=== PATIENT | female | born 1980 | race Caucasian/White ===

== ENCOUNTER 2022-06-21 07:46 | Emergency (ER) | payer BC, SELFPAY ==
--- NOTE | ~2022-06-21 | CT_ITS ---
EXAMINATION: CT HEAD WITHOUT CONTRAST CLINICAL INFORMATION: Dizziness, headache and blurred vision. COMPARISON: None TECHNIQUE: Contiguous axial imaging was performed from the skull base to vertex without intravenous administration of contrast. This CT examination was performed using dose optimization techniques as appropriate, variously including the following: *Automated exposure control *Adjustment of mA and/or kV according to patient size (this includes techniques or standardized protocols for targeted exams where dose is matched to indication/reason for exam; i.e. extremities or head) *Use of iterative reconstruction technique DLP: 646 mGy-cm FINDINGS: Brain: There is no acute intra-axial, extra-axial bleed, masses or midline shift. There is no acute infarction in evolution. There is no edema. The lateral ventricles are symmetrical in size and configuration without enlargement. The crawford to white matter differentiation is maintained normal. Bone windows reveal no calvarial abnormality. No scalp soft tissue abnormality seen. The paranasal sinuses are well-aerated. CT/CT head/brain wo IV con IMPRESSION: No acute intracranial process seen.
[2022-06-21 07:49] VITALS: BP 153/101; PULSE 99; RESP 18; TEMP 35.9; O2SAT 97; BMI 40.1
--- NOTE | 2022-06-21 07:53 | ECG_ITS ---
Test Reason : headache / blurry vision Blood Pressure : / mmHG Vent. Rate : 085 BPM Atrial Rate : 085 BPM P-R Int : 150 ms QRS Dur : 076 ms QT Int : 366 ms P-R-T Axes : 033 -01 003 degrees QTc Int : 435 ms Normal sinus rhythm Nonspecific ST and T wave abnormality Borderline ECG No previous ECGs available Referred By: Generic ED Physician Electronically Signed By:ANDREAS ELLIS
--- NOTE | 2022-06-21 08:17 | ED_ITS ---
HPI - Headache General Chief Complaint: Headache Stated Complaint: headache Time Seen by Provider: 06/21/22 07:58 Source: patient Mode of arrival: ambulatory Limitations: no limitations History of Present Illness HPI Narrative: 42 yo female with history of HTN, GERD, and question of a recently diagnosed pituitary tumor presents to the ER for evaluation of a severe headache, dizziness and blurred vision that started last night. She reports a history of similar symptoms that have come and gone intermittently for the last few months but not this bad. She states last night when she was laying down she developed s evere generalized headache along with dizziness, nausea and intermittently blurred and spotty vision. She states it has been constant since last night. She also reports associated chest pain and SOB. She has not vomited and denies abdominal pain. She thinks she might have passed out due to the pain last night. She states she is currently seeing and [employer] Dealer with [facility] for evaluation of a possible pituitary tumor. She had an MRI and bloodwork done in Apr/May. She states she is due to get a dedicated pituitary MRI for further evaluation. MD elicited complaint: headache Pertinent past history: hypertension Onset (ago): hour(s) (12) Onset description: suddenly Location: generalized Severity: severe Pain scale (0-10): 10 Quality & Timing: aching and constant Exacerbating factors: none Relieving factors: nothing Context: occurred at rest Associated symptoms: nausea, syncope, near syncope and lightheadedness Treatments prior to arrival: none Related Data Allergies Allergy/AdvReac Type Severity Reaction Status Date / Time No Known Allergies Allergy Verified 06/21/22 07:49 Review of Systems Review of Systems: Yes all other systems are reviewed and are negative [facility] Social History Social History Advance Directives: No Advance Directives Information Provided: No Physical Exam Vital Signs: Vital Signs: Last Vital Signs Temp 98.4 F 06/21/22 12:50 Pulse 85 06/21/22 12:50 Resp 16 06/21/22 12:50 BP 119/70 06/21/22 12:50 Pulse Ox 99 06/21/22 12:50 O2 Del Method 06/21/22 12:50 BMI result Body Mass Index 40.1 Appearance: Alert. Oriented X3. Tearful Eyes: Pupils equal, round and reactive to light. EOMI, no nystagmus ENT: Pharynx normal. Neck: Normal inspection. Neck supple. CVS: Normal heart rate and rhythm. Pulses normal. Respiratory: No respiratory distress. Breath sounds normal. Abdomen: Soft and nontender. +BS x4 Skin: Skin warm and dry. Normal skin color. Normal skin turgor. No rashes. Extremities: No lower extremity edema. Neuro: Oriented X 3. No motor deficit. No sensory deficit. CN II-XII intact. Normal speech and cognition. Normal heel to lanza and finger to nose bilaterally. NIH Stroke Scale Internal: Initial- Upon Arrival Level of Consciousness: Alert Level of Consciousness Questions: Answers both questions correctly Level of Consciousness Commands: Performs both tasks correctly Best Gaze: Normal Visual: No visual loss Facial Palsy: Normal Motor Arm (Right): No drift Motor Arm (Left): No drift Motor Leg (Right): No drift Motor Leg (Left): No drift Limb Ataxia: Absent Sensory: Normal Best Language: No aphasia Dysarthia: Normal Extinction and Inattention: No abnormality Score: 0 Course Course Course Narrative: 42 yo female with history of HTN and GERD, hx pituitary tumor presenting with severe headache, dizziness and blurred vision since last night. No visual field loss on examination Will try to get [facility] records. Will get labs and CT. Will need MRI to r/o tumor compressing optic nerve although she does not have any notable visual field deficits. Will treat with migraine cocktail and reassess. Case d/w Dr. Schilling. Reevaluation(s) Reevaluation #1: Headache improved after medications with ongoing complaints of dizziness when she closes her eyes. No sense of room spinning however. No vomiting. Continues to be neuro deficit free but has not been able to tolerate Will give trial of mecilzine and ativan. Time: 10:20 Reevaluation #2: Dizziness persists, headache is back. IV morphine ordered. Time: 11:45 Reevaluation #3: Patient sleeping comfortably. Time: 14:09 Additional Reevaluation(s): 15:23- She does not feel like she can go home. Hospitalist TT for admission for intractable dizziness, however we have no MRI available until Thursday. Symptoms may be related to her pituitary tumor vs possible posterior stroke. will transfer to [facility] for continuity of care. Accepted under Dr. Muir. Patient agrees with plan for transfer Medications Administered Discontinued Medications Generic Name Dose Route Start Last Admin Trade Name Freq PRN Reason Stop Dose Admin Diphenhydramine HCl 50 mg 06/21/22 08:21 06/21/22 08:39 Diphenhydramine Hcl 50 Mg/Ml Vial IVPUSH 06/21/22 08:22 50 mg ONCE ONE Administration Sodium Chloride 1,000 mls @ 999 mls/hr 06/21/22 08:00 06/21/22 10:09 Ns IVCONT 06/21/22 09:00 Infused .Q1H1M BALDEV Infusion Ketorolac Tromethamine 30 mg 06/21/22 08:21 06/21/22 08:39 Ketorolac Tromethamine 30 Mg/Ml Vial IVPUSH 06/21/22 08:22 30 mg ONCE ONE Administration Lorazepam 1 mg 06/21/22 10:20 06/21/22 10:35 Lorazepam 1 Mg Tablet PO 06/21/22 10:21 1 mg ONCE ONE Administration Meclizine HCl 50 mg 06/21/22 10:20 06/21/22 10:35 Meclizine Hcl 25 Mg Tablet PO 06/21/22 10:21 50 mg ONCE ONE Administration Metoclopramide HCl 10 mg 06/21/22 08:21 06/21/22 08:40 Metoclopramide Hcl 10 Mg/2 Ml Vial IVPUSH 06/21/22 08:22 Not Given ONCE ONE Morphine Sulfate 4 mg 06/21/22 11:44 06/21/22 12:53 Morphine Sulfate 4 Mg/Ml Cartridge IVPUSH 06/21/22 11:45 4 mg ONCE ONE Administration Protocol Ondansetron HCl 4 mg 06/21/22 08:43 06/21/22 08:46 Ondansetron Hcl 4 Mg/2 Ml Vial IVPUSH 06/21/22 08:44 4 mg ONCE ONE Administration Medical Decision Making Differential Diagnosis Differential Diagnoses: The differential diagnosis associated with the pre sentation includes Migraine headache, atypical migraine, pituitary macroadenoma compressing the optic nerve, posterior stroke, ICH, viral illness, metabolic derangements, brain tumor Admission/Observation Consideration of admission/observation: Escalation of care including admission/observation considered Intractable dizziness, headache, blurred vision, attempted to admit here however no MRI service and Thursday. No neurosurgery services in the need of a surgical intervention for tumor. Transfer to [facility]. Consult Healthcare Provider Management of the patient was discussed with: Hospitalist recommending transfer to higher level of care Lab Data MDM Lab Attestation statement: I reviewed the patient's lab results. Viewed the patient's lab workup, revealing Normal CBC, unremarkable complete metabolic panel, negative troponin 06/21/22 08:31 06/21/22 08:31 Labs: Lab Results 06/21/22 06/21/22 06/21/22 Range/Units 08:31 08:31 08:31 WBC 7.8 (4.8-10.8) X10*3/uL RBC 4.55 (4.20-5.50) X10*6/uL Hgb 13.1 (12.0-16.0) g/dl Hct 38.8 (37.0-47.0) % MCV 85.3 (80.0-98.0) fL MCH 28.8 (27.0-33.0) pg MCHC 33.8 (31.0-35.0) g/dl RDW 14.0 (11.0-16.0) % Plt Count 303 (160-400) X10*3/uL MPV 10.2 (9.4-12.3) fL Immature Gran % (Auto) 0.3 (0.0-0.4) % Neut % (Auto) 74.7 H (45-73) % Lymph % (Auto) 18.9 L (20-40) % [place] % (Auto) 5.0 (2-11) % Eos % (Auto) 0.5 (0-4) % Baso % (Auto) 0.6 (0-2) % Lymph # (Auto) 1.5 (1.2-4.9) X10*3/uL [place] # (Auto) 0.4 (0.1-1.2) X10*3/uL Eos # (Auto) 0.0 (0.0-0.4) X10*3/uL Baso # (Auto) 0.1 (0.0-0.2) X10*3/uL Abs Immat Gran (auto) 0.02 (0.00-0.03) X10*3/uL Absolute Neuts (auto) 5.9 (2.0-8.3) x10*3/uL Absolute Nucleated RBC 0.000 (0.0-0.012) X10*3/uL Nucleated RBC % (auto) 0.0 (0.0-0.2) /100WBC PT 12.4 (10.0-13.1) SEC INR 1.1 (0.9-1.1) APTT 32.7 (26.0-36.4) SEC Sodium 138 (135-145) mmol/L Potassium 3.9 (3.3-5.1) mmol/L Chloride 104 (96-108) mmol/L Carbon Dioxide 20 L (22-29) mmol/L Anion Gap 18 (12-20) BUN 11 (9-16) mg/dL Creatinine 0.74 (0.5-1.4) mg/dL Estim Creat Clear Calc 109.2 Estimated GFR > 60 Random Glucose 144 H (60-115) mg/dL Calcium 9.6 (8.4-10.2) mg/dL Magnesium 2.0 (1.6-2.6) mg/dL Total Bilirubin 0.9 (0.0-1.0) mg/dL Direct Bilirubin 0.3 (0.0-0.5) mg/dL AST 16 (5-31) U/L ALT 18 (0-31) U/L Alkaline Phosphatase 69 (39-117) U/L Troponin I High Sens (<3.5-17.0) ng/L Total Protein 7.1 (6.5-8.0) g/dL Albumin 4.3 (3.5-5.0) g/dL TSH (0.32-4.0) uIU/mL COVID-19 (JUSTO) (Negative) COVID-19 Clin Com 06/21/22 06/21/22 06/21/22 Range/Units 08:31 08:31 08:31 WBC (4.8-10.8) X10*3/uL RBC (4.20-5.50) X10*6/uL Hgb (12.0-16.0) g/dl Hct (37.0-47.0) % MCV (80.0-98.0) fL MCH (27.0-33.0) pg MCHC (31.0-35.0) g/dl RDW (11.0-16.0) % Plt Count (160-400) X10*3/uL MPV (9.4-12.3) fL Immature Gran % (Auto) (0.0-0.4) % Neut % (Auto) (45-73) % Lymph % (Auto) (20-40) % [place] % (Auto) (2-11) % Eos % (Auto) (0-4) % Baso % (Auto) (0-2) % Lymph # (Auto) (1.2-4.9) X10*3/uL [place] # (Auto) (0.1-1.2) X10*3/uL Eos # (Auto) (0.0-0.4) X10*3/uL Baso # (Auto) (0.0-0.2) X10*3/uL Abs Immat Gran (auto) (0.00-0.03) X10*3/uL Absolute Neuts (auto) (2.0-8.3) x10*3/uL Absolute Nucleated RBC (0.0-0.012) X10*3/uL Nucleated RBC % (auto) (0.0-0.2) /100WBC PT (10.0-13.1) SEC INR (0.9-1.1) APTT (26.0-36.4) SEC Sodium (135-145) mmol/L Potassium (3.3-5.1) mmol/L Chloride (96-108) mmol/L Carbon Dioxide (22-29) mmol/L Anion Gap (12-20) BUN (9-16) mg/dL Creatinine (0.5-1.4) mg/dL Estim Creat Clear Calc Estimated GFR Random Glucose (60-115) mg/dL Calcium (8.4-10.2) mg/dL Magnesium (1.6-2.6) mg/dL Total Bilirubin (0.0-1.0) mg/dL Direct Bilirubin (0.0-0.5) mg/dL AST (5-31) U/L ALT (0-31) U/L Alkaline Phosphatase (39-117) U/L Troponin I High Sens < 3.5 (<3.5-17.0) ng/L Total Protein (6.5-8.0) g/dL Albumin (3.5-5.0) g/dL TSH 0.51 (0.32-4.0) uIU/mL COVID-19 (JUSTO) Negative (Negative) COVID-19 Clin Com See Note Independent Interpretation I performed an independent interpretation of an: CT Scan Interpretation: CT scan of the head reviewed, no obvious ICH or stroke Radiology Impression Discussion of test interpretation with radiology: I have reviewed the radiologist's reading. Radiologist Impression: FINDINGS: Brain: There is no acute intra-axial, extra-axial bleed, masses or midline shift. There is no acute infarction in evolution. There is no edema. The lateral ventricles are symmetrical in size and configuration without enlargement. The crawford to white matter differentiation is maintained normal. Bone windows reveal no calvarial abnormality. No scalp soft tissue abnormality seen. The paranasal sinuses are well-aerated. ? CT/CT head/brain wo IV con IMPRESSION: No acute intracranial process seen. Prescription Management I considered prescription management with: Pain Medication Critical Care Time Critical Care Time Critical Care Time: Yes Total Critical Care Time: 48 Attestation: I have personally provided critical care time exclusive of time spent on separately billable procedures. Time includes review of lab data, radiology results, discussion with consultants, and monitoring for potential decompensation. Intervention performed as documented. Discharge Plan Discharge Clinical Impression: Headache, Dizziness Patient Disposition: [facility] Transfer Details: [facility]
[2022-06-21 08:37] LABS: MANUAL DIFF FLAG NO
--- OUTSIDE RECORDS SUMMARY | 2022-06-21 08:37 | XMS_ITS ---
:1980 Author Care Team Providers Name Role Phone Hitesh Hendrix Primary Care Provider Unavailable Allergies Code Code System Name Reaction Severity Status Onset NKDA ? Medications Name Status Start Date Stop Date ? ? albuterol sulfate HFA 90 mcg/actuation aerosol inhaler Active ? Not available INHALE 2 PUFFS BY MOUTH EVERY 4 HOURS amoxicillin 875 mg-potassium clavulanate 125 mg tablet Active ? Not available TAKE 1 TABLET BY MOUTH EVERY 12 HOURS DIRECTED FOR 10 DAYS aspirin 81 mg tablet,delayed release Active ? Not available TAKE 1 TABLET BY MOUTH EVERY DAY azelastine 0.05 % eye drops Active ? Not available azelastine-fluticasone 137 mcg-50 mcg/spray nasal spray Active ? Not available USE 1 SPRAY EACH NOSTRIL TWICE DAILY azithromycin 250 mg tablet Active ? Not a vailable TAKE 2 TABLETS BY MOUTH TODAY, THEN TAKE 1 TABLET DAILY FOR 4 D AYS BD Felicia 2nd Gen Pen Needle 32 gauge x Active ? Not available USE DIRECTED ONCE A WEEK WITH OZEMPIC diclofenac 1 % topical gel Active ? Not a vailable APPLY 2 GRAMS TO THE AFFECTED AREA(S) BY TOPICAL ROUTE 4 TIMES PER DAY epinephrine 0.3 mg/0.3 mL injection, auto-injector Active ? Not available PLEASE SEE ATTACHED FOR DETAILED DIRECTIONS fluconazole 150 mg tablet Active ? Not av ailable FreeStyle Lancets 28 gauge Active ? Not a vailable E11.9 TEST ONCE DAILY FreeStyle Lite Meter kit Active ? Not forest ilable E11.9 TEST ONCE DAILY FreeStyle Lite Strips Active ? Not availa ble E11.9 TEST ONCE DAILY levofloxacin 500 mg tablet Active ? Not a vailable lisinopril Active ? Not available lisinopril 10 mg tablet Active ? Not avai lable TAKE 1 TABLET BY MOUTH EVERY DAY losartan 50 mg tablet Active ? Not availa ble montelukast 10 mg tablet Active ? Not forest ilable TAKE 1 TABLET BY MOUTH EVERY DAY olopatadine 0.6 % nasal spray Active ? No t available SPRAY OR APPLY 2 INHALATIONS INSIDE NOSE 2 (TWO) TIMES A DAY NEEDED. Ozempic Active ? Not available Ozempic 0.25 mg or 0.5 mg (2 mg/1.5 mL) subcutaneous pen injecto r Active ? Not available INJECT 0.5 MG ONCE A WEEK FOR DIABETES Ozempic 1 mg/dose (4 mg/3 mL) subcutaneous pen injector Active ? Not available INJECT 1 MG ONCE A WEEK FOR DIABETES pantoprazole 40 mg tablet,delayed release Active ? Not available TAKE 1 TABLET BY MOUTH EVERY DAY prednisone 10 mg tablet Active ? Not avai lable TAKE 1 TABLET BY MOUTH EVERY DAY FOR 5 DAYS prednisone 20 mg tablet Active ? Not avai lable TAKE 2 TABLETS BY MOUTH FOR 3 DAYS THEN TAKE 1 TABLET FOR 2 DAY S tinidazole 500 mg tablet Active ? Not forest ilable TAKE 4 TABLETS (2 G TOTAL) BY MOUTH DAILY FOR 2 DOSES. Vitamin C 500 mg tablet Active ? Not avai lable TAKE 1 TABLET BY MOUTH EVERY DAY zinc sulfate 50 mg zinc (220 mg) tablet Active ? Not available TAKE 1 TABLET BY MOUTH EVERY DAY Zyrtec Active ? Not available Problems None recorded. Procedures None recorded. Results Lab Results Date Name Specimen Result Interpretation Description Value Range Status Address ? 04/01/2022 SARS CoV 2 RNA ? Result negative ? ? [facility] (COVID-19), [place], [place]: [address], [address] , Respiratory [place] Specimen Past Encounters Encounter Date Diagnosis Provider 04/01/2022 Suspected COVID-19; Acute Sinusitis Marcus parth ANGELO Kenyon: [address], [place] [address], Ph. Social History None recorded. Vaccine List None recorded. Plan of Care Reminders Provider Appointments None recorded. ? ? Lab None recorded. ? ? Referral None recorded. ? ? Procedures None recorded. ? ? Surgeries None recorded. ? ? Imaging None recorded. ? ? Vitals Blood Pressure (1) 154/112 mm[Hg] (2) 139/93 mm[Hg]
--- OUTSIDE RECORDS SUMMARY | 2022-06-21 08:37 | XMS_ITS | Encounter Summary ---
:1980 Author Reason for Visit COVID-19 symptoms sinus headache, rt eye pain/redness/disc harge, sore throat in the am, post nasal drip2 shots moderna Assessment and Plan Assessment Note Take Augmentin as prescribed COVID swab done came back negative Follow-up with your ENT appointment Take [id number] cough and cold med s as needed and directed Increase fluids, rest 1. Suspected COVID-19 ? SARS CoV 2 RNA (COVID-19), QL, accounting machine operator-PC R, respiratory specimen 2. Acute sinusitis ? sinusitis: care instructions ? amoxicillin 875 mg-potassium clavulan ate 125 mg tablet Discussion Note Reviewed patient?s medical history and co-morbidities addressed. Plan of Care Reminders Provider Appointments None recorded. ? ? Lab SARS CoV 2 RNA (COVID-19), QL, 04/01/2022 [facility] Just[place]ar[place] accounting machine operator-PCR, Respiratory Specimen Referral None recorded. ? ? Procedures None recorded. ? ? Surgeries None recorded. ? ? Imaging None recorded. ? ? Medications Name Start Date ? ? albuterol sulfate HFA 90 mcg/actuation aerosol inhaler ? INHALE 2 PUFFS BY MOUTH EVERY 4 HOURS amoxicillin 875 mg-potassium clavulanate 125 mg tablet ? TAKE 1 TABLET BY MOUTH EVERY 12 HOURS DIRECTED FOR 10 DAYS aspirin 81 mg tablet,delayed release ? TAKE 1 TABLET BY MOUTH EVERY DAY azelastine 0.05 % eye drops ? PLACE 1 DROP INTO BOTH EYES 2 TIMES A DAY. azelastine-fluticasone 137 mcg-50 mcg/spray nasal spra y ? USE 1 SPRAY EACH NOSTRIL TWICE DAILY azithromycin 250 mg tablet ? TAKE 2 TABLETS BY MOUTH TODAY, THEN TAKE 1 TABLET EDOUARD LY FOR 4 DAYS BD Felicia 2nd Gen Pen Needle 32 gauge x ? USE DIRECTED ONCE A WEEK WITH OZEMPIC diclofenac 1 % topical gel ? APPLY 2 GRAMS TO THE AFFECTED AREA(S) BY TOPICAL ROUT E 4 TIMES PER DAY epinephrine 0.3 mg/0.3 mL injection, auto-injector ? PLEASE SEE ATTACHED FOR DETAILED DIRECTIONS fluconazole 150 mg tablet ? TAKE 1 TABLET BY MOUTH TODAY AND REPEAT DOSE IN 3 DAY S FreeStyle Lancets 28 gauge ? E11.9 TEST ONCE DAILY FreeStyle Lite Meter kit ? E11.9 TEST ONCE DAILY FreeStyle Lite Strips ? E11.9 TEST ONCE DAILY levofloxacin 500 mg tablet ? lisinopril ? lisinopril 10 mg tablet ? TAKE 1 TABLET BY MOUTH EVERY DAY losartan 50 mg tablet ? montelukast 10 mg tablet ? TAKE 1 TABLET BY MOUTH EVERY DAY olopatadine 0.6 % nasal spray ? SPRAY OR APPLY 2 INHALATIONS INSIDE NOSE 2 (TWO) TIME S A DAY NEEDED. Ozempic ? Ozempic 0.25 mg or 0.5 mg (2 mg/1.5 mL) subcutaneous p en injector ? INJECT 0.5 MG ONCE A WEEK FOR DIABETES Ozempic 1 mg/dose (4 mg/3 mL) subcutaneous pen injecto r ? INJECT 1 MG ONCE A WEEK FOR DIABETES pantoprazole 40 mg tablet,delayed release ? TAKE 1 TABLET BY MOUTH EVERY DAY prednisone 10 mg tablet ? TAKE 1 TABLET BY MOUTH EVERY DAY FOR 5 DAYS prednisone 20 mg tablet ? TAKE 2 TABLETS BY MOUTH FOR 3 DAYS THEN TAKE 1 TABLET FOR 2 DAYS tinidazole 500 mg tablet ? TAKE 4 TABLETS (2 G TOTAL) BY MOUTH DAILY FOR 2 DOSES . Vitamin C 500 mg tablet ? TAKE 1 TABLET BY MOUTH EVERY DAY zinc sulfate 50 mg zinc (220 mg) tablet ? TAKE 1 TABLET BY MOUTH EVERY DAY Zyrtec ? Medications Administered None recorded. Vitals Blood Pressure (1) 154/112 mm[Hg] (2) 139/93 mm[Hg] Results Lab Results Date Name Specimen Result Interpretation Description Value Range Status Address ? 04/01/2022 SARS CoV 2 RNA ? Result negative ? ? [facility] (COVID-19), [place], [place]: [address], [address] , Respiratory [place] Specimen Allergies Code Code System Name Reaction Severity Onset NKDA ? ? ? Problems None recorded. Procedures None recorded. Vaccine List None recorded. Social History None recorded. Functional Status Unknown. Past Encounters Encounter Date Diagnosis Provider 04/01/2022 Suspected COVID-19; Acute Sinusitis ANGELO Evans: [address], [place] [address], Ph. History of Present Illness Note: <div>Patient is a 42 year old female presenting for 1 week of right sided sinus pressure and congestion. Reports headaches and right sided ear pain. States she has seasonal allergies and is on OTC daily zyrtec and prescription nasal sprays. Also has been using neti pot almost daily. 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 History of sinus infections. Reports mild sore throat in the mornings. Reports post nasal drip. States she has taken tylenol and Advil sinus as needed for severe pain. Deniesfever, chills, SOB and chest pain. No other complaints at this time. </div>Review of Systems: ROS as noted in the HPI Review of Systems ? Comprehensive Adult Problem ROS Reported By: Patient Constitutional: Constitutional: no significa nt weight change, good appetite Eyes: Eyes: eye pain, eye redness, eye discharge ENMT: ENMT: sinus pressure, conges tion, sore throat Cardiovascular: Cardiovascular: no chest vanita n, normal heart rate Chest/Breasts: Breasts: no lumps, no tender ness Gastrointestinal: GI: no difficulty swallowing , no abdominal pain Genitourinary: : no discharge, no blood i n urine Musculoskeletal: Musculoskeletal: no soft tis sundar swelling, no joint swelling Skin: Skin: no pain, no itchiness Neurological symptoms: Neuro: no numbness, no weakn ess, headache Psychiatric: Psych: no depression, no anx iety Endocrine: Endocrine: normal drinking, no temperature intolerance Allergic/Immunologic: Allergy/Immunologic: no snee zing, no runny nose Physical Exam ? Notes: <div>General: Alert and orie nted x3 in no apparent distress.</div><div>
< /div><div>Skin: Mcgill warm and dry. No lesions or masses appreciated throughou t.</div><div>
</div><div>Eyes: Conjunctiva are clear bilaterally. Nonin jected sclera. </div><div>
</div><div>ENT: TMs are clear with visible tympa fani membranes noted bilaterally. Ear canals are without cerumen and infectio n bilaterally. Nasal passages are clear. Pharynx without erythema or edema di ffusely. Uvula is midline. Tonsils without exudate noted bilaterally. Right zain ed frontal and maxillary tenderness.</div><div>
</ div><div>Heart: Regular rate and rhythm with no murmurs, rubs, gallops.</div ><div>
</div><div>Lungs: Clear to auscultation bilaterally wit h no wheezes, rales or rhonchi.</div><div>
</div ><div>Musculoskeletal: Full range of motion of upper and lower extremities bilaterally.</div><div>
</div><div>Neuro: Sensorineurally intact.</div ><div>
</div><div>Lymph: No cervical lymphadenopathy appreciated. </div><div>
</div><div>Psych: Mood is congruent affect. Patient is calm and cooperative.</div>
[2022-06-21] MEDS: 0.9 % Sodium Chloride 1,000 ML 999 ML IVCONT (08:39)
[2022-06-21] MEDS: Ketorolac Tromethamine 30 MG/ML VIAL IVPUSH (08:39)
[2022-06-21] MEDS: diphenhydrAMINE HCL 50 MG/ML VIAL IVPUSH (08:39)
[2022-06-21 08:41] LABS: Basophils Absolute Auto 0.1 X10*3/uL (0.0-0.2); Basophils Percent Auto 0.6 % (0-2); Eosinophils Percent Auto 0.5 % (0-4); Hematocrit 38.8 % (37.0-47.0); Hemoglobin 13.1 g/dl (12.0-16.0); Imm Gran Abs Auto 0.02 X10*3/uL (0.00-0.03); Imm Gran Pct Auto 0.3 % (0.0-0.4); Lymphocytes Absolute Auto 1.5 X10*3/uL (1.2-4.9); Lymphocytes Percent Auto 18.9 % (20-40); Mean Corpuscular HGB Conc 33.8 g/dl (31.0-35.0); Mean Corpuscular Hemoglobin 28.8 pg (27.0-33.0); Mean Corpuscular Volume 85.3 fL (80.0-98.0); Mean Platelet Volume 10.2 fL (9.4-12.3); Monocytes Absolute Auto 0.4 X10*3/uL (0.1-1.2); Neutrophils Absolute Auto 5.9 x10*3/uL (2.0-8.3); Neutrophils Percent Auto 74.7 % (45-73); Platelet Count 303 X10*3/uL (160-400); Red Blood Count 4.55 X10*6/uL (4.20-5.50); White Blood Count 7.8 X10*3/uL (4.8-10.8)
[2022-06-21 08:45] LABS: INTERNATIONAL NORM RATIO 1.1 (0.9-1.1); Prothrombin Time 12.4 SEC (10.0-13.1)
[2022-06-21] MEDS: ondansetron HCL 4 MG/2 ML VIAL IVPUSH (08:46)
[2022-06-21 08:47] LABS: Partial Thromboplastin Time 32.7 SEC (26.0-36.4)
[2022-06-21 08:48] VITALS: RESP 16
--- NOTE | 2022-06-21 08:51 | PC.NURSE ---
Alert and oriented. Pt reports headache and dizziness for months with little relief. IV established, labs drawn and sent. Medicated per the MAR. Awaiting MRI.
[2022-06-21 08:53] LABS: COVID-19 Test Negative (Negative); IDNOW Serial# BCCEAD1C
[2022-06-21 08:56] LABS: Alanine Aminotransferase 18 U/L (0-31); Albumin Level 4.3 g/dL (3.5-5.0); Alkaline Phosphatase 69 U/L (39-117); Anion Gap 18 (12-20); Aspartate Amino Transferase 16 U/L (5-31); Bilirubin Direct 0.3 mg/dL (0.0-0.5); Bilirubin Total 0.9 mg/dL (0.0-1.0); Blood Urea Nitrogen 11 mg/dL (9-16); Calcium 9.6 mg/dL (8.4-10.2); Carbon Dioxide 20 mmol/L (22-29); Chloride 104 mmol/L (96-108); Creatinine Clr Calc Pharmacy 109.2; Estimated Glomerular Filt Rate > 60; Glucose Random 144 mg/dL (60-115); Potassium 3.9 mmol/L (3.3-5.1); Sodium 138 mmol/L (135-145); Total Protein 7.1 g/dL (6.5-8.0)
[2022-06-21 09:02] LABS: Troponin-I High Sensitivity < 3.5 ng/L (<3.5-17.0)
[2022-06-21 09:17] LABS: TSH reflex Free T4 0.51 uIU/mL (0.32-4.0)
[2022-06-21] MEDS: Meclizine HCl 25 MG TABLET 50 MG PO (10:35)
[2022-06-21] MEDS: LORazepam 1 MG TABLET PO (10:35)
[2022-06-21 12:50] VITALS: BP 119/70; PULSE 85; RESP 16; TEMP 36.9; O2SAT 99
[2022-06-21] MEDS: Morphine Sulfate 4 MG/ML CARTRIDGE IVPUSH (12:53)
--- NOTE | 2022-06-21 12:55 | PC.NURSE ---
Medicated per the MAR, pt resting in bed at this time. Call rollins within reach
--- NOTE | 2022-06-21 15:48 | MHC.EDTECH ---
providers plan is to transfer to [facility]. [facility] was called at [address] Muir. Shanita was reached for BLS transfer immediately after. Shanita sent the unit to our facility. pt is now being taken by ems at 1550
--- NOTE | 2022-06-21 16:00 | PHA.MEDREC ---
Pharmacy Consult ? Medication Reconciliation Pharmacy has completed the medication reconciliation.Spoke with patient in the ED who knew all medications. pt only took amlodipine today.
== END 2022-06-21 16:11 | disposition short-term general hospital (02) ==
PROVIDERS: Physician Assistant; Emergency Provider Emergency Medicine Emergency Medical Services
DX: R51.9 Headache, unspecified (principal); R42 Dizziness and giddiness; D49.7 Neoplasm of unspecified behavior of endocrine glands and other parts of nervous system; Z20.822 Contact with and (suspected) exposure to COVID-19; I10 Essential (primary) hypertension
CPT/HCPCS: 36415; 70450; 80048; 80076; 83735; 84443; 84484; 85025; 85610; 85730; 87635; 93005; 96361; 96374; 96375; 99285; J1200; J1885; J2270; J2405